=== PATIENT | male | born 1930 | race Caucasian/White ===

== ENCOUNTER 2017-10-08 11:29 | Inpatient (IN) | payer MEDICARE, BC ==
[2017-10-08 11:57] LABS: #Basophils 0.1 thou/uL (0.0-0.2); #Eosinphils 0.2 thou/uL (0.0-0.7); #Lymphocytes 1.4 thou/uL (1.20-3.40); #Monocytes 0.7 thou/uL (0.11-0.59); #Neutrophils 6.5 thou/uL (1.40-6.50); %Basophils 0.6 % (0.0-1.0); %Eosinophils 1.8 % (0.0-10.0); %Lymphocytes 15.8 % (21.0-51.0); %Monocytes 8.2 % (0.0-10.0); %Neutrophils 73.7 % (42.0-75.0); Hemoglobin 17.5 g/dL (14.0-18.0); Mean Corpuscular HGB CONC 32.4 g/dL (32.0-36.0); Mean Corpuscular Hemoglobin 30.2 pg (27.0-31.0); Mean Corpuscular Volume 93.3 fl (80.0-94.0); Mean Platelet Volume 7.9 fL (7.4-10.4); Platelet Count 130 thou/uL (130-400); RBC Distribution Width 14.3 % (11.5-14.5); Red Blood Cell (RBC) Count 5.78 mill/uL (4.70-6.10); White Blood Cell (WBC) Count 8.8 thou/uL (4.8-10.8)
[2017-10-08 12:25] LABS: ALT (SGPT) 17 U/L (8-55); AST (SGOT) 15 U/L (5-34); Albumin 4.2 g/dL (3.4-4.8); Alkaline Phosphatase 57 U/L (40-150); Anion Gap 13 mmol/L (10-20); BUN (Urea Nitrogen) 24 mg/dL (8.4-25.7); Bilirubin, Total 0.8 mg/dL (0.2-1.2); Calc. Creatinine Clearance 0 mL/min (70-130); Calcium 10.6 mg/dL (7.8-10.44); Carbon Dioxide 22 mmol/L (23-31); Chloride 108 mmol/L (98-107); Estimated GFR-MDRD 42; Globulin 2.5 g/dL (2.4-3.5); Glucose 150 mg/dL (83-110); Protein, Total 6.7 g/dL (5.8-8.1); Sodium 138 mmol/L (136-145)
[2017-10-08 12:28] LABS: Troponin I 0.061 ng/mL (< 0.028)
[2017-10-08] MEDS ORDERED: cefTRIAXone\\ROCEPHIN 2 GM VIAL ONE (12:29)
--- NOTE | 2017-10-08 12:59 | RAD ---
CHEST 1 VIEW: Date: 10/08/17 HISTORY: Dyspnea. Shortness of breath. COMPARISON: None. FINDINGS: There are some chronic pleural and parenchymal changes at the lung bases. No pneumothorax. No focal a ir space consolidation. Cardiac silhouette and mediastinal contours within normal limits. Moderate ca lcifications of transverse aorta. No acute osseous abnormality. IMPRESSION: No acute intrathoracic abnormality. POS: [facility]
[2017-10-08 13:23] LABS: Bilirubin Negative (Negative); Blood, Urine Trace (Negative); Glucose, Urine (Dipstick) Negative (Negative); Leukocyte Negative (Negative); Nitrite Negative (Negative); Protein, Urine (Dipstick) Negative (Neg-Trace); Urobilinogen 0.2 mg/dL (0.2-1.0)
[2017-10-08 13:29] LABS: Clarity Clear (Clear); Specific Gravity, Urine 1.018 (1.002-1.036)
[2017-10-08 13:34] LABS: Bacteria/HPF None Seen HPF (None Seen); Hyaline Casts/LPF 0-3 HYALINE CAST LPF (0-3 Hyaline); Pathc Cast-AUWi Flag 0.14 (0-2.49); Squamous Epithelial None Seen HPF (0-3); WBC/HPF 0-3 HPF (0-3)
[2017-10-08] MEDS ORDERED: Azithromycin 250 MG TAB ONE (14:27)
[2017-10-08] MEDS ORDERED: predniSONE 20 MG TAB ONE (14:27)
[2017-10-08] MEDS ORDERED: Aspirin 325 MG TAB ONE (14:39)
[2017-10-08 16:21] LABS: Lactic Acid 2.2 mmol/L (0.5-2.2)
[2017-10-08 16:31] LABS: Troponin I 0.063 ng/mL (< 0.028)
--- NOTE | 2017-10-08 16:31 | HP ---
PRIMARY CARE PHYSICIAN: Morgan Fraire MD REASON FOR ADMISSION: Dyspnea, elevated troponin, lactic acidosis. HISTORY OF PRESENT ILLNESS: An 87-year-old male, who has underlying history of hypertension, dyslipi demia, coronary artery disease as well as COPD, who came to emergency room for evaluation of increasi ng shortness of breath. The patient has increasing shortness of breath for the last 3 days. He repo rts that after walking a few steps, he gets out of breath. For the last week, he was experiencing ru nny nose allergy symptoms from trees and pollen. Subsequently, he was having increasing cough produc tive of scant amount of sputum associated with shortness of breath. The patient is using inhalers at home, but that was not helping his shortness of breath. He denies any fever or chills. He denies a ny pleurisy. He denies any hemoptysis. He denies any lower extremity edema. He has mild orthopnea. He denies any PND. The patient was not feeling good and he was becoming more and more short of coby ath and that is why he called paramedics. Paramedics saw him in mild respiratory distress. He was h ypoxic at 89% saturation on room air. He was given nebulizer therapy and after that the patient felt better. In the emergency room today, routine evaluation showed elevated troponin and lactic acidosi s. The patient denies any flu-like symptoms. He denies any sore throat. He denies any constipation , diarrhea, melena or hematochezia. He denies any UTI symptoms. He denies any exertional chest pain , but he reports that 2 days ago he experienced left-sided mild chest pain, which was not related wit h respiration or activity and ignored that symptoms. Since then, he did not have any further chest p ain. ALLERGIES: PENICILLIN. CURRENT HOME MEDICATIONS: Bystolic 5 mg p.o. daily, Plavix 75 mg p.o. daily, aspirin 81 mg p.o. jeremy y, Zocor 40 mg p.o. at bedtime, lisinopril 10 mg p.o. daily, Uloric 40 mg p.o. daily, Mobic 7.5 mg p. o. daily, Astelin nasal spray twice daily. REVIEW OF SYSTEMS: The following complete review of systems was negative, unless otherwise mentioned in the HPI or below: Constitutional: Weight loss or gain, ability to conduct usual activities. Skin: Rash, itching. Eyes: Double vision, pain. ENT/Mouth: Nose bleeding, neck stiffness, pain, tenderness. Cardiovascular: Palpitations, dyspnea on exertion, orthopnea. Respiratory: Shortness of breath, wheezing, cough, hemoptysis, fever or night sweats. Gastrointestinal: Poor appetite, abdominal pain, heartburn, nausea, vomiting, constipation, or diarr hea. Genitourinary: Urgency, frequency, dysuria, nocturia. Musculoskeletal: Pain, swelling. Neurologic/Psychiatric: Anxiety, depression. Allergy/Immunologic: Skin rash, bleeding tendency. Please see my HPI for pertinent positive and negative. All other review of systems reviewed and nega tive except as mentioned in the HPI. PAST MEDICAL HISTORY: Hypertension, dyslipidemia, coronary artery disease with stents, COPD, history of myocardial infarction in 2005, hyperuricemia with gout. PAST SURGICAL HISTORY: Cardiac catheterization with stent placement, prostate surgery. PAST PSYCHIATRIC HISTORY: Reviewed and negative. FAMILY HISTORY: No strong family history of premature coronary artery disease, stroke or cancer. SOCIAL HISTORY: The patient is an ex-smoker. He quit smoking 9 years ago. He denies any alcohol ab use. He denies any other illicit drug abuse. He lives at home with his family. EMERGENCY ROOM COURSE: The patient was given 1 liter Ringer's lactate, DuoNeb therapy, Rocephin 2 gr am, prednisone 50 mg, azithromycin 500 mg and aspirin 324 mg. PHYSICAL EXAMINATION: VITAL SIGNS: On arrival, blood pressure 147/99, pulse 104, respiratory rate 24, temperature 97.7, sa turation 91% on room air, weight 95.2 kilograms. GENERAL: The patient is currently alert and awake, no obvious acute distress. HEENT: Head: Normocephalic, atraumatic. Eyes: Pupils are round and reactive to light. Extraocula r muscles are intact. ENT: Oropharynx within normal limits. No pharyngeal erythema, no exudate. NECK: Supple, no JVD, no thyromegaly, no carotid bruit. LUNGS: Bilateral end expiratory wheezing, reduced air entry, no rales. CARDIAC: S1, S2 regular. No murmur, no gallop, no rub. ABDOMEN: Soft, bowel sounds present, nontender, nondistended. No organomegaly, no mass, no suprapub ic tenderness. BACK: Unremarkable. No CVA tenderness. EXTREMITIES: Upper extremity: Passive movements of all joints are normal. Lower extremity: No chitra ma. Good peripheral pulsation, no calf tenderness. SKIN: No skin rash other than variable stages of purpura on the skin from bruits. PSYCHIATRIC: Normal affect. NEUROLOGIC: The patient is alert and oriented x3. Cranial nerves II-XII intact. Motor and sensatio n within normal limits. Speech is normal. Planter bilateral flexor. He moves all 4 limbs. Grossly nonfocal neurological examination. SIGNIFICANT LABORATORY DATA: EKG showing normal sinus rhythm, nonspecific ST-T changes in anterior a nd lateral leads. Chest x-ray based on my review, chronic changes, but no acute cardiopulmonary process noted. CBC: WBC 8.8, hemoglobin 17.5, platelet 130. BMP: Sodium 138, potassium 5.0, chloride 108, carbon dioxide 22, anion gap 13, BUN 24, creatinine 1.57, glucose 150, calcium 10.6, lactic acid 2.6. LFT: AST 15, ALT 17, alkaline phosphatase 57, albumin 4.2, total protein 6.7, troponin 0.061. Urinalysis is normal. ASSESSMENT AND PLAN: 1. Acute hypoxic respiratory failure. The patient has oxygen saturation 89% on room air at home, mo st likely related with his respiratory distress from chronic obstructive pulmonary disease exacerbati on. During this admission, we will give him oxygen and without oxygen, we will check his room air ox ygen saturation to assess whether he needs any home oxygen requirement or not. 2. Dyspnea, mild respiratory distress due to chronic obstructive pulmonary disease flareup. The pat vidhya's current presentation with dyspnea on exertion as well as worsening shortness of breath is rela gian with his chronic obstructive pulmonary disease flareup that has precipitated by allergy symptoms versus upper respiratory infection. We will check respiratory virus panel. We will treat him in [facility] with Solu-Medrol 40 mg IV q.6 hourly, DuoNeb therapy every 4 hourly, Dulera two puff inhal ation b.i.d., and Mucinex 600 mg twice daily. We will also start empiric antibiotic therapy with lev ofloxacin 500 mg IV daily and will monitor oxygen saturation. 3. Elevated troponin, likely due to demand ischemia from chronic obstructive pulmonary disease flare -up, but we will also check BNP and will do serial cardiac enzymes x3 to rule out acute coronary synd veronica and will obtain echocardiography to assess ejection fraction and other structural abnormality. We will also continue aspirin 325 mg p.o. daily. The patient currently does not have any angina symp toms. 4. Lactic acidosis likely related with the use of muscles and hypoxia. We will repeat lactic acid t omorrow and will also continue antibiotic therapy. 5. Chronic kidney disease, stage 3. We will monitor renal function and avoid nephrotoxin agent. We will repeat BMP tomorrow. 6. Coronary artery disease with history of stent. We will continue aspirin 81 mg p.o. daily, Plavix 75 mg p.o. daily, Zocor 40 mg p.o. at bedtime and Bystolic 5 mg p.o. daily. We are obtaining echoca rdiography to assess ejection fraction and other structural abnormality and will check BNP and we yoselin l do serial cardiac enzymes x3. 7. Dyslipidemia. Check lipid profile tomorrow and continue Zocor 40 mg p.o. at bedtime. 8. Hypertension. Continue Bystolic 5 mg p.o. daily and lisinopril 10 mg p.o. daily. 9. Hyperuricemia with a history of gout. Continue Uloric 40 mg p.o. daily. 10. Obesity. Dietary education given, weight loss education given. Healthy lifestyle measures disc ussed with the patient. 11. Deep venous thrombosis prophylaxis. We will continue Lovenox 40 mg subcutaneously daily. 12. Gastrointestinal prophylaxis, Pepcid 20 mg p.o. b.i.d. 13. Code status: The patient is FULL CODE. The patient's is surrogate decision maker. Disposition plan based on clinical course. We are expecting the patient's stay in hospital more than 24 hours, but the patient prefers to go home tomorrow if possible. He is already feeling a little b it better and we will keep him as observation status. Plan of care discussed with the patient in detail.
[2017-10-08] MEDS ORDERED: hydrALAZINE 20 MG/ML VIAL SLOW IVP PRN (18:07)
[2017-10-08] MEDS ORDERED: Ondansetron ODT 4 MG TAB PO PRN (18:07)
[2017-10-08] MEDS ORDERED: Nitroglycerin 0.4 MG TAB (25 Tab Bottle) SL PRN (18:07)
[2017-10-08] MEDS ORDERED: Artificial Tears 18 DROP/0.9 ML EA EYE PRN (18:07)
[2017-10-08] MEDS ORDERED: HYDROcodone/Acetaminophen 5/325 mg Tablet PO PRN (18:07)
[2017-10-08] MEDS ORDERED: Chloraseptic Spray 180 ml Bottle PO PRN (18:07)
[2017-10-08] MEDS ORDERED: Mag-Al 1200 mg/1200 mg/30 ML UDCUP PO PRN (18:07)
[2017-10-08] MEDS ORDERED: Zolpidem Tartrate 5 MG TAB PO PRN (18:07)
[2017-10-08] MEDS ORDERED: Eucerin (Mineral Oil/Petrolatum,White) 30 gm Jar TOP PRN (18:07)
[2017-10-08] MEDS ORDERED: Milk Of Magnesia 30 ML UDCUP PO PRN (18:07)
[2017-10-08] MEDS ORDERED: Acetaminophen 325 MG TAB PO PRN (18:07)
[2017-10-08] MEDS ORDERED: Loratadine 10 MG TAB PO PRN (18:07)
[2017-10-08] MEDS ORDERED: Ondansetron HCl/PF 4 MG/2 ML Vial IVP PRN (18:07)
[2017-10-08] MEDS ORDERED: Diabetic Tussin 200 MG/10 ML UDCUP PO PRN (18:07)
[2017-10-08] MEDS ORDERED: Sodium Chloride 0.65% Nasal 44 ML BOT EA NARE PRN (18:07)
[2017-10-08] MEDS ORDERED: Senokot 8.6 MG TAB PO PRN (18:07)
[2017-10-08] MEDS ORDERED: Loperamide HCl 2 MG CAP PO PRN (18:07)
[2017-10-08 18:27] VITALS: BMI 31.8
[2017-10-08] MEDS: Mometasone/Formoterol 120 PUFF INHALER INH SCH (19:04)
[2017-10-08] MEDS: Atorvastatin Calcium 20 MG TAB PO SCH (20:00)
[2017-10-08] MEDS: Famotidine 20 MG TAB PO SCH (20:01)
[2017-10-08] MEDS: guaiFENesin ER 600 MG TAB PO SCH (20:02)
[2017-10-09 05:10] LABS: #Lymphocytes 0.7 thou/uL (1.20-3.40); #Monocytes 0.2 thou/uL (0.11-0.59); #Neutrophils 8.1 thou/uL (1.40-6.50); %Eosinophils 0.2 % (0.0-10.0); %Lymphocytes 7.3 % (21.0-51.0); %Monocytes 1.7 % (0.0-10.0); %Neutrophils 90.8 % (42.0-75.0); Hemoglobin 15.9 g/dL (14.0-18.0); Mean Corpuscular HGB CONC 33.3 g/dL (32.0-36.0); Mean Corpuscular Hemoglobin 30.4 pg (27.0-31.0); Mean Corpuscular Volume 91.4 fl (80.0-94.0); Mean Platelet Volume 7.6 fL (7.4-10.4); Platelet Count 121 thou/uL (130-400); RBC Distribution Width 13.9 % (11.5-14.5); Red Blood Cell (RBC) Count 5.24 mill/uL (4.70-6.10); White Blood Cell (WBC) Count 8.9 thou/uL (4.8-10.8)
[2017-10-09 05:16] LABS: Lactic Acid 3.7 mmol/L (0.5-2.2)
[2017-10-09 05:24] LABS: Anion Gap 14 mmol/L (10-20); BUN (Urea Nitrogen) 26 mg/dL (8.4-25.7); Calc. Creatinine Clearance 50 mL/min (70-130); Calcium 10.6 mg/dL (7.8-10.44); Carbon Dioxide 20 mmol/L (23-31); Cardiac Risk 3.1 (Less than 4.5); Chloride 108 mmol/L (98-107); Cholesterol 114 mg/dl (< 200 Desired); Estimated GFR-MDRD 45; Glucose 174 mg/dL (83-110); HDL Cholesterol 37 mg/dL (>60 Neg Risk); LDL Cholesterol, Calculated 67 mg/dL; Potassium 4.5 mmol/L (3.5-5.1); Sodium 137 mmol/L (136-145); Triglycerides 50 mg/dL (Less than 150)
[2017-10-09] MEDS: Mometasone/Formoterol 120 PUFF INHALER INH SCH ×2 (08:08→18:31)
[2017-10-09] MEDS ORDERED: Enoxaparin Sodium 40 MG/0.4 ML SYRINGE SC SCH (09:00)
[2017-10-09] MEDS ORDERED: Enoxaparin Sodium 30 MG/0.3 ML SYRINGE SC SCH (09:00)
[2017-10-09] MEDS ORDERED: FEBUXOSTAT 40 MG PO SCH (09:00)
[2017-10-09] MEDS: Nebivolol HCl 5 MG TAB PO SCH (09:03)
[2017-10-09] MEDS: Clopidogrel Bisulfate 75 MG TAB PO SCH (09:03)
[2017-10-09] MEDS: Lisinopril 10 MG TAB PO SCH (09:04)
[2017-10-09] MEDS: guaiFENesin ER 600 MG TAB PO SCH ×2 (09:04→21:44)
--- NOTE | 2017-10-09 10:06 | PDOC.PN ---
- Subjective Encounter Start Date: 10/09/17 Encounter Start Time: 07:20 -: old records requested/rev Patient seen and examined. No new complaints. No overnight events feels better, no fever - Objective Resuscitation Status: Resuscitation Status FULL:Full Resuscitation MAR Reviewed: Yes Vital Signs & Weight: Vital Signs (12 hours) Temp Pulse Resp BP BP Pulse Ox 10/09/17 09:04 155/79 H 10/09/17 08:08 80 12 10/09/17 08:02 91 L 10/09/17 07:59 84 12 10/09/17 07:35 97.3 F L 86 20 155/79 H 98 10/09/17 04:43 97.4 F L 89 20 142/71 H 97 10/08/17 23:10 22 H 172/87 H 99 10/08/17 22:34 96 Weight Weight 215 lb 3.2 oz I&O: 10/08/17 10/09/17 10/10/17 06:59 06:59 06:59 Intake Total 730 Output Total 250 Balance 480 Result Diagrams: 10/09/17 04:45 10/09/17 04:45 EKG Reviewed by me: Yes (nsr) Phys Exam - Physical Examination Constitutional: NAD HEENT: PERRLA, moist MMs, sclera anicteric Neck: no JVD, supple Respiratory: no wheezing, no rales, no rhonchi reduced air entry Cardiovascular: RRR, no significant murmur, no rub Gastrointestinal: soft, non-tender, no distention, positive bowel sounds Musculoskeletal: no edema, pulses present Neurological: non-focal, normal sensation, moves all 4 limbs Psychiatric: normal affect, A&O x 3 Skin: no rash, normal turgor Dx/Plan (1) COPD exacerbation Code(s): J44.1 - CHRONIC OBSTRUCTIVE PULMONARY DISEASE W (ACUTE) EXACERBATION Status: Acute (2) Demand ischemia of myocardium Code(s): I24.8 - OTHER FORMS OF ACUTE ISCHEMIC HEART DISEASE Status: Acute (3) Elevated brain natriuretic peptide (BNP) level Code(s): R79.89 - OTHER SPECIFIED ABNORMAL FINDINGS OF BLOOD CHEMISTRY Status : Acute (4) Hypoxia Code(s): R09.02 - HYPOXEMIA Status: Acute (5) Lactic acidosis Code(s): E87.2 - ACIDOSIS Status: Acute (6) CKD (chronic kidney disease) stage 3, GFR 30-59 ml/min Code(s): N18.3 - CHRONIC KIDNEY DISEASE, STAGE 3 (MODERATE) Status: Chronic (7) Coronary artery disease Code(s): I25.10 - ATHSCL HEART DISEASE OF [place] CORONARY ARTERY W/O ANG PCTRS Status: Chronic Qualifiers: Associated angina: without angina (8) Dyslipidemia Code(s): E78.5 - HYPERLIPIDEMIA, UNSPECIFIED Status: Chronic (9) Hypertension Code(s): I10 - ESSENTIAL (PRIMARY) HYPERTENSION Status: Chronic (10) Obesity (BMI 30.0-34.9) Code(s): E66.9 - OBESITY, UNSPECIFIED Status: Chronic - Plan cont current plan of care, continue antibiotics, respiratory therapy * echo pending today for high bnp * will check room air and after walking saturation, if normal then he is ok to be discharge later today * if still needs oxygen then will observe one more day * on discharge po levaquin, taper prednisone, ventolin inhaler * medication reviewed as below * symptomatic treatment. Review of Systems - Review of Systems Constitutional: negative: fever, chills, sweats, weakness, malaise, other Eyes: negative: Pain, Vision Change, Conjunctivae Inflammation, Eyelid Inflammation, Redness, Other ENT: negative: Ear Pain, Ear Discharge, Nose Pain, Nose Discharge, Nose Congestion, Mouth Pain, Mouth Swelling, Throat Pain, Throat Swelling, Other Respiratory: Cough. negative: Dry, Shortness of Breath, Hemoptysis, SOB with Excertion, Pleuritic Pain, Sputum, Wheezing Cardiovascular: negative: chest pain, palpitations, orthopnea, paroxysmal nocturnal dyspnea, edema, light headedness, other Gastrointestinal: negative: Nausea, Vomiting, Abdominal Pain, Diarrhea, Constipation, Melena, Hematochezia, Other Genitourinary: negative: Dysuria, Frequency, Incontinence, Hematuria, Retention , Other Musculoskeletal: negative: Neck Pain, Shoulder Pain, Arm Pain, Back Pain, Hand Pain, Leg Pain, Foot Pain, Other Skin: negative: Rash, Lesions, Iain, Bruising, Other - Medications/Allergies Allergies/Adverse Reactions: Allergies Allergy/AdvReac Type Severity Reaction Status Date / Time Penicillins Allergy Verified 02/12/14 09:43 Medications: Current Medications Acetaminophen (Tylenol) 650 mg PO Q4H PRN PRN Reason: Headache/Fever or Pain Hydrocodone Bitart/Acetaminophen ([place] 5/325) 1 tab PO Q4H PRN PRN Reason: Moderate Pain (4-6) Al Hydroxide/Mg Hydroxide (Maalox) 30 ml PO Q6H PRN PRN Reason: Heartburn or Indigestion Albuterol/Ipratropium (Duoneb) 3 ml NEB [id number] [facility] Last Admin: 10/09/17 07:59 Dose: 3 ml Artificial Tears (Tears Naturale) 0 drop EA EYE PRN PRN PRN Reason: Dry Eyes Aspirin (Aspirin Chewable) 81 mg PO DAILY [facility] Last Admin: 10/09/17 09:03 Dose: 81 mg Atorvastatin Calcium (Lipitor) 20 mg PO HS [facility] Last Admin: 10/08/17 20:00 Dose: Not Given Clopidogrel Bisulfate (Plavix) 75 mg PO QAM [facility] Last Admin: 10/09/17 09:03 Dose: 75 mg Enoxaparin Sodium (Lovenox) 30 mg SC 0900 [facility] Last Admin: 10/09/17 09:04 Dose: Not Given Famotidine (Pepcid) 20 mg PO Q24HR [facility] Last Admin: 10/08/17 20:01 Dose: Not Given Fluticasone Propionate (Flonase Nasal [place]) 0 gm NASAL DAILY [facility] Guaifenesin (Robitussin Sf) 200 mg PO Q4H PRN PRN Reason: Cough Guaifenesin (Mucinex) 600 mg PO Q12HR [facility] Last Admin: 10/09/17 09:04 Dose: 600 mg Hydralazine HCl (Apresoline) 10 mg SLOW IVP Q4H PRN PRN Reason: Systolic BP > 180 Levofloxacin 500 mg/ Device 100 mls @ 100 mls/hr IVPB 1800 [facility] Last Admin: 10/08/17 18:53 Dose: 100 mls Lisinopril (Zestril) 10 mg PO DAILY [facility] Last Admin: 10/09/17 09:04 Dose: 10 mg Loperamide HCl (Imodium) 2 mg PO PRN PRN PRN Reason: Diarrhea/Loose Stools Loratadine (Claritin) 10 mg PO DAILYPRN PRN PRN Reason: Sinus Symptoms Magnesium Hydroxide (Milk Of Magnesium) 30 ml PO DAILYPRN PRN PRN Reason: Constipation Methylprednisolone Sodium Succinate (Solu-Medrol) 40 mg IVP Q6HR [facility] Last Admin: 10/09/17 04:46 Dose: 40 mg Mineral Oil/White Petrolatum (Eucerin Cream) 0 gm TOP BIDPRN PRN PRN Reason: Dry Skin Mometasone Furoate/Formoterol Fumar (Dulera 200 Mcg/5 Mcg Inhaler) 2 puff INH BID-RT [facility] Last Admin: 10/09/17 08:08 Dose: 2 puff Nebivolol (Bystolic) 5 mg PO DAILY [facility] Last Admin: 10/09/17 09:03 Dose: 5 mg Nitroglycerin (Nitrostat) 0.4 mg SL Q5MIN PRN PRN Reason: Chest Pain Ondansetron HCl (Zofran Odt) 4 mg PO Q6H PRN PRN Reason: Nausea/Vomiting Ondansetron HCl (Zofran) 4 mg IVP Q6H PRN PRN Reason: Nausea/Vomiting Febuxostat [Uloric] (40 Mg)) 0 each PO DAILY [facility] Phenol (Chloraseptic [place] 180 Ml Bot) 0 ml PO PRN PRN PRN Reason: Sore Throat Senna (Senokot) 2 tab PO HSPRN PRN PRN Reason: Constipation Sodium Chloride ([place] Nasal [place] 0.65%) 0 ml EA NARE QIDPRN PRN PRN Reason: Nasal Congestion Zolpidem Tartrate (Ambien) 5 mg PO HSPRN PRN PRN Reason: Insomnia
[2017-10-09] MEDS: Fluticasone Propionate Nasal Spray 16 gm Bottle NASAL SCH (10:28)
[2017-10-09 12:27] LABS: Lactic Acid 4.1 mmol/L (0.5-2.2)
[2017-10-09] MEDS: Atorvastatin Calcium 20 MG TAB PO SCH (21:44)
[2017-10-09] MEDS: Famotidine 20 MG TAB PO SCH (21:44)
[2017-10-10 05:12] LABS: Anion Gap 19 mmol/L (10-20); BUN (Urea Nitrogen) 38 mg/dL (8.4-25.7); Calc. Creatinine Clearance 45 mL/min (70-130); Calcium 10.6 mg/dL (7.8-10.44); Carbon Dioxide 18 mmol/L (23-31); Chloride 107 mmol/L (98-107); Estimated GFR-MDRD 41; Glucose 166 mg/dL (83-110); Lactic Acid 3.2 mmol/L (0.5-2.2); Potassium 4.7 mmol/L (3.5-5.1); Sodium 139 mmol/L (136-145)
[2017-10-10 05:39] LABS: Band 12 % (5-11); Hemoglobin 15.8 g/dL (14.0-18.0); Lymphocytes 3 % (21-51); MDiff Complete? YES; Mean Corpuscular Hemoglobin 30.5 pg (27.0-31.0); Mean Corpuscular Volume 92.3 fl (80.0-94.0); Mean Platelet Volume 7.9 fL (7.4-10.4); Monocytes 5 % (0-10); Neutrophil 80 % (42-75); PLT Morphology Comment Appears Adequate; Platelet Count 139 thou/uL (130-400); RBC Distribution Width 14.3 % (11.5-14.5); RBC Morphology Normal; Red Blood Cell (RBC) Count 5.18 mill/uL (4.70-6.10); White Blood Cell (WBC) Count 18.1 thou/uL (4.8-10.8)
[2017-10-10] MEDS: Mometasone/Formoterol 120 PUFF INHALER INH SCH (07:44)
[2017-10-10] MEDS: Enoxaparin Sodium 40 MG/0.4 ML SYRINGE SC SCH ×2 (10:14→10:20)
[2017-10-10] MEDS: Nebivolol HCl 5 MG TAB PO SCH (10:15)
[2017-10-10] MEDS: Fluticasone Propionate Nasal Spray 16 gm Bottle NASAL SCH (10:15)
[2017-10-10] MEDS: Lisinopril 10 MG TAB PO SCH (10:15)
[2017-10-10] MEDS: Clopidogrel Bisulfate 75 MG TAB PO SCH (10:15)
[2017-10-10] MEDS: guaiFENesin ER 600 MG TAB PO SCH (10:16)
--- NOTE | 2017-10-10 10:45 | DIS ---
DATE OF ADMISSION: 10/08/2017 DATE OF DISCHARGE: 10/10/2017 PRIMARY CARE PHYSICIAN: Morgan Farire MD DISCHARGE DISPOSITION: Home. PRIMARY DISCHARGE DIAGNOSES: Chronic obstructive pulmonary disease exacerbation, hypoxia is improved (acute hypoxic respiratory failure due to problem #1, improved) demand ischemia of myocardium, lacti c acidosis. SECONDARY DISCHARGE DIAGNOSES: Chronic kidney disease stage 3, coronary artery disease with stent, h ypertension, dyslipidemia, hyperuricemia, obesity, chronic obstructive pulmonary disease. PRIMARY PROCEDURE/OPERATION: None. RADIOLOGICAL INVESTIGATION: Chest x-ray was unremarkable. Echocardiography was normal. SIGNIFICANT LABS: WBC 18.1, which is related with steroid; hemoglobin 15.8; platelet 139. Sodium 13 9, potassium 4.7, chloride 107, BUN 38, creatinine 1.61, calcium 10.6. BNP 144, LDL 67. LFT normal. Troponin 0.061. Urinalysis normal. Blood culture negative. Urine culture negative. Respiratory virus panel positive for rhinovirus. DISCHARGE MEDICATIONS: Aspirin 81 mg p.o. daily, Plavix 75 mg p.o. daily, Uloric 40 mg p.o. daily, F lonase nasal spray b.i.d., Breo Ellipta one inhalation daily, Mucinex 600 mg p.o. b.i.d. for 7 days, Levaquin 500 mg p.o. daily for 7 days, lisinopril 10 mg p.o. daily, Mobic 7.5 mg p.o. daily p.r.n., B ystolic 5 mg p.o. daily. Prednisone 40 mg p.o. daily for 5 days, then 20 mg p.o. daily for 5 days, t hen 10 mg daily for 5 days. Zocor 40 mg p.o. at bedtime, Ventolin inhaler 2 puffs q.6 hourly p.r.n. CONTRAINDICATIONS: None. CODE STATUS: FULL CODE. INPATIENT CONSULTANTS: None. ALLERGIES: PENICILLIN. DISCHARGE PLAN: Post hospital, the patient wants to follow up with Dr. Olivera and Dr. Goldstein and [facility] physician on an outpatient basis. HOSPITAL COURSE: An 87-year-old male who was admitted by [facility] on 10/08/2017. The patient was in respi ratory distress. He was having increasing shortness of breath on exertion. He was wheezing in both lungs. He was also having poor air entry in both lungs. He was not able to talk in full sentences. He was hypoxic, saturating 89% on room air. We suspected COPD exacerbation. His lactic acid was el evated and his troponin was also indeterminate range and that is why ER physician was admitted this p atient to telemetry floor for rule out acute coronary syndrome. We did serial cardiac enzyme and his troponin remained indeterminant range without any significant elevation. His lactic acid converted to normal and subsequently elevated. This lactic acid is not related with his infectious process. W angélica in hospital, he did not have infection. He remained hemodynamically stable. He was initially h ypoxic, but subsequently, he did not require any oxygen. His saturation significantly improved with steroid therapy. We treated him with empiric antibiotic therapy with levofloxacin, frequent DuoNeb t herapy, Dulera and Solu-Medrol. On discharge, we prescribed tapering doses of prednisone, empiric an tibiotic therapy, and Ventolin inhaler. The patient was on room air. He was ambulatory without any shortness of breath and his room air saturation was also normal. Echocardiography was obtained which was also normal. The patient was given chance of seeing Dr. Olivera and Dr. Goldstein while in hospital, b ks he preferred to go home and follow up with them as an outpatient basis. At this point, the patient is medically stable for discharge. He also eager to go home today. He re ports today that he is feeling back to normal and he prefers to go home today and per his request, we are discharging. The patient is seen and examined at bedside today. PHYSICAL EXAMINATION: VITAL SIGNS: Currently temperature 98.5, pulse 95, respiratory rate 18, saturation 94% on room air, blood pressure 131/81, weight 215 pounds. GENERAL: The patient is currently alert and awake, no acute distress. HEAD: Normocephalic, atraumatic. EYES: Pupils round, reactive to light. Extraocular muscle intact. ENT: Oropharynx within normal limits. Moist mucous membranes, no oral lesion, no pharyngeal erythem a, no exudate. NECK: Supple, no JVD, no thyromegaly, no carotid bruit. No jugular venous distention. LUNGS: Clear to auscultation. Air entry significantly improved. I could not hear any wheeze, rhonc hi, or rales. CARDIAC: S1, S2 regular without any murmur. ABDOMEN: Obesity present. Bowel sounds present, nontender, nondistended. No organomegaly, no mass, no suprapubic tenderness. BACK: Unremarkable. No CVA tenderness. NEUROLOGIC: Nonfocal examination. All new medication prescription sent to his pharmacy. Initially, we kept this patient in observation status, but as he was meeting inpatient criteria, we c hanged to inpatient status yesterday, but today patient significantly improved surprisingly and balwinder ace now wants to go home today and per his request after changing to inpatient status, we are disch arging within 24 hours.
[2017-10-10 20:36] VITALS: BP 137/71; TEMP 98.1
== END 2017-10-10 12:47 | disposition home or self-care (01) | DRG 189 ==
LOC: ERS 11:29 → 2SW 15:37 → OBSVTOIN 10-09 12:47 → 2NO 10-09 14:50
PROVIDERS: ADMIT Internal Medicine; ATTEND Internal Medicine
DX: J96.01 Acute respiratory failure with hypoxia (principal); E87.2 Acidosis; J44.1 Chronic obstructive pulmonary disease with (acute) exacerbation; I24.8 Other forms of acute ischemic heart disease; E78.5 Hyperlipidemia, unspecified; I25.10 Atherosclerotic heart disease of native coronary artery without angina pectoris; Z79.51 Long term (current) use of inhaled steroids; Z88.0 Allergy status to penicillin; Z79.01 Long term (current) use of anticoagulants; Z79.82 Long term (current) use of aspirin; Z95.5 Presence of coronary angioplasty implant and graft; I25.2 Old myocardial infarction; M10.9 Gout, unspecified; Z87.891 Personal history of nicotine dependence; I12.9 Hypertensive chronic kidney disease with stage 1 through stage 4 chronic kidney disease, or unspecified chronic kidney disease; N18.3 Chronic kidney disease, stage 3 (moderate); E66.9 Obesity, unspecified; Z68.31 Body mass index [BMI] 31.0-31.9, adult
CPT/HCPCS: 36415; 71045; 80048; 80053; 80061; 81003; 81015; 83605; 83880; 84484; 85025; 87040; 87086; 87633; 87798; 93005; 93306; 94640; 94664; 96361; 96365; J0696; J1650; J1956; J2920; J7506; J7620

== ENCOUNTER 2017-10-17 12:58 | Outpatient (CLI) | payer MEDICARE, BC ==
--- NOTE | 2017-10-17 13:33 | RAD ---
CHEST PA AND LATERAL TWO VIEWS: History: 87-year-old male with history of dyspnea. Comparison: 10-08-17 FINDINGS: Heart size is within normal limits. Atherosclerosis of the aorta with ectasia. Bilateral nipple shado ws. Biapical pleural thickening. IMPRESSION: Mild bilateral hyperinflation and chronic lung changes. NO acute intrathoracic disease. Stable from p rior study. POS: [facility]
== END 2017-10-17 12:59 | disposition home or self-care (01) ==
LOC: RAD 12:58
PROVIDERS: ATTEND Internal Medicine Critical Care Medicine
DX: R06.00 Dyspnea, unspecified (principal); R91.8 Other nonspecific abnormal finding of lung field
CPT/HCPCS: 71046

== ENCOUNTER 2020-10-07 09:40 | Outpatient (CLI) | payer MEDICARE, BC | END 2020-10-07 09:41 | disposition home or self-care (01) | LOC: BICRAD 09:40 | PROVIDERS: ATTEND Internal Medicine Critical Care Medicine | DX: R06.00 Dyspnea, unspecified (principal) | CPT/HCPCS: 71046 ==